=== PATIENT | female | born 1950 | race Caucasian/White ===

== ENCOUNTER → 2019-06-26 | Outpatient (CLI) | payer MEDICARE | END | disposition home or self-care (01) | LOC: LAB SHORT 09:50 → LAB EV 09:50 | DX: L02.222 Furuncle of back [any part, except buttock and flank] (principal) | CPT/HCPCS: 87070; 87075; 87205 ==

== ENCOUNTER 2021-12-16 08:53 | Day surgery (SDC) | payer MEDICARE ==
[~2021-12-16] VITALS: Ht 172.7 cm; Wt 71.8 kg
[2021-12-16] MEDS ORDERED: ATENOLOL 50 MG (09:13)
[2021-12-16] MEDS ORDERED: AMLODIPINE BESYL5 MG (09:14)
[2021-12-16] MEDS ORDERED: LETROZOLE2.5 M3 (09:14)
[2021-12-16] MEDS ORDERED: LETR2.5 (09:14)
[2021-12-16] MEDS ORDERED: LOSARTAN POTASS25 M2 (09:14)
[2021-12-16] MEDS ORDERED: Metrogel 1% 6060 GM (09:21)
== END 2021-12-16 11:07 | disposition home or self-care (01) ==
LOC: ORSCSDS 08:53
DX: Z12.11 Encounter for screening for malignant neoplasm of colon (principal); D12.3 Benign neoplasm of transverse colon; D12.5 Benign neoplasm of sigmoid colon; K63.5 Polyp of colon; K64.8 Other hemorrhoids; Z86.010 Personal history of colon polyps; Z83.71 Family history of colonic polyps; I10 Essential (primary) hypertension; F32.A Depression, unspecified; R73.03 Prediabetes; E78.1 Pure hyperglyceridemia; Z79.899 Other long term (current) drug therapy; F17.210 Nicotine dependence, cigarettes, uncomplicated
CPT/HCPCS: 88305; J2704; J7120

== ENCOUNTER → 2022-09-22 | Outpatient (CLI) | payer MEDICARE ==
[~2022-09-22] MED LIST: AMLODIPINE BESYL5 MG; ATENOLOL 50 MG; LETR2.5; LETROZOLE2.5 M3; LOSARTAN POTASS25 M2; Metrogel 1% 6060 GM
== END ==
LOC: LAB 08:11 → LAB SHORT 08:11 → PLD 08:11
DX: L72.8 Other follicular cysts of the skin and subcutaneous tissue (principal)
CPT/HCPCS: 88304

== ENCOUNTER 2025-02-19 06:41 | Day surgery (SDC) | payer MEDICARE ==
[~2025-02-19] VITALS: Ht 172.7 cm; Wt 71.5 kg
[2025-02-19] MEDS ORDERED: DOXY100 (07:07)
[2025-02-19] MEDS ORDERED: METAMUCIL174 GM (07:08)
[2025-02-19] MEDS ORDERED: CENTRUM SILVER1 EAC2 (07:08)
[2025-02-19] MEDS ORDERED: FISH OIL 1,2001 EAC4 (07:08)
[2025-02-19] MEDS ORDERED: MERIBIN5 MG (07:08)
[2025-02-19] MEDS ORDERED: Lactated Ringer's 1,000 ML IV ONE ×2 (07:32→07:54)
[2025-02-19] MEDS ORDERED: propofoL 50 ML IV ONE (07:32)
[2025-02-19] MEDS ORDERED: ePHEDrine Sulfate 50 MG/ML 1ML Injection ONE (08:39)
[2025-02-19 09:14] VITALS: BP 118/61
== END 2025-02-19 09:04 | disposition home or self-care (01) ==
LOC: ORSCSDS 06:41
PROVIDERS: Internal Medicine Gastroenterology
PROC: 0DBL8ZX Excision of Transverse Colon, Via Natural or Artificial Opening Endoscopic, Diagnostic (ICD-10-PCS; principal; 2025-02-19 08:00)
PROC: 0DBM8ZX Excision of Descending Colon, Via Natural or Artificial Opening Endoscopic, Diagnostic (ICD-10-PCS; principal; 2025-02-19 08:00)
PROC: 0DBN8ZX Excision of Sigmoid Colon, Via Natural or Artificial Opening Endoscopic, Diagnostic (ICD-10-PCS; principal; 2025-02-19 08:00)
PROC: 0DBK8ZX Excision of Ascending Colon, Via Natural or Artificial Opening Endoscopic, Diagnostic (ICD-10-PCS; principal; 2025-02-19 08:00)
DX: Z12.11 Encounter for screening for malignant neoplasm of colon (principal); Z86.0101 Personal history of adenomatous and serrated colon polyps; D12.2 Benign neoplasm of ascending colon; K63.5 Polyp of colon; Z83.719 Family history of colon polyps, unspecified; K64.4 Residual hemorrhoidal skin tags; K57.30 Diverticulosis of large intestine without perforation or abscess without bleeding; K55.20 Angiodysplasia of colon without hemorrhage; I10 Essential (primary) hypertension; Z85.3 Personal history of malignant neoplasm of breast; Z79.899 Other long term (current) drug therapy; F17.210 Nicotine dependence, cigarettes, uncomplicated
CPT/HCPCS: 88305; J2704; J7120